=== PATIENT | female | born 1990 | race Caucasian/White ===

== ENCOUNTER 2016-09-29 16:53 | Emergency (ER) | payer OTHER ==
[~2016-09-29 16:53] MED LIST: PREN29TA PO
[2016-09-29 17:35] VITALS: BP 141/80; PULSE 100
[2016-09-29 17:45] VITALS: RESP 20; TEMP 98
[2016-09-29] MEDS ORDERED: RESP: ALBUTEROL 2.5 MG/3 ML NEB (SCH) NEB ONE (18:00)
[2016-09-29] MEDS ORDERED: methylPREDNISolone SOD SUCC 125 MG/2 ML VIAL IV PUSH ONE (18:00)
--- NOTE | 2016-09-29 18:02 | PD ---
HPI Chief Complaint cough Date Seen: Sep 29, 2016 Time Seen: 17:30 Travel History International Travel<30 Days: No Contact w/Intl Traveler<30Days: No Known Affected Area: No History of Present Illness HPI 25yo [id number] at 26w 4days here for cough and wheezing. Has h/o well controlled asthma not presently on inhaler. Has had to be admitted due to respiratory status in the past. Fever x 1 day, seen in urgent care center yesterday and given Z-pack. Flu swab negative yesterday Para: 3 : 6 Last Menstrual Period: Sep 29, 2016 Miscarriage: 1 : 1 History Past Medical History Narrative Medical Asthma Obstetric History Obstetric History x 3 Past Surgical History Narrative Surgical None Family History Family History: Negative Social History Alcohol Use: No Tobacco Use: No Substance Abuse: No Allergies-Medications (Allergen,Severity, Reaction): Coded Allergies: Multivitamins (Verified Allergy, Intermediate, Hives, 09/14/16) Amoxicillin (Verified Allergy, Mild, Hives, 09/14/16) Home Meds Reported Medications Vit-Iron Carbonyl ( Plus Iron 29-1 mg)1 Tab Tab1 Tab PO DAILY #30 TAB Ref 0 07/14/16 Review of Systems General / Constitutional: Fever Eyes: No: Diploplia, Blurred Vision, Visual changes, Pain, Photophobia HENT: Other (Nasal congestion) Cardiovascular: No: Irregular Rhythm, Chest Pain or Discomfort, Palpitations, Tachycardia, Syncope, Varicosities, Edema, Cyanosis Respiratory: Cough, Wheezing Gastrointestinal: No: Nausea, Vomiting, Diarrhea Genitourinary: No: Decreased Urinary Output, Oliguria Musculoskeletal: No: Limited ROM, Weakness, Cramping, Edema, Pain Skin: No Rash, No Itching, No Dryness, No Lumps, No Change in Pigmentation, No Change in Nails, No Alopecia, No Lesions Neurologic: No: Weakness, Dizziness, Syncope, Focal Abnormalities, Coordination Problem, Headache, Slurred Speech, Seizures Physical Exam Narrative GENERAL: Well-nourished, well-developed patient. SKIN: Warm and dry. HEAD: Normocephalic and atraumatic. EYES: No scleral icterus. No injection or drainage. ENT: nasal drainage noted. Mucous membranes pink. Airway patent. NECK: Supple, trachea midline. No JVD. CARDIOVASCULAR: Regular rate and rhythm without murmurs, gallops, or rubs. RESPIRATORY: Good air movement noted, wheezes throughout both lung guerra BREASTS: Bilateral exam showed no masses , no retractions, no nipple discharge. ABDOMEN/GI: Abdomen soft, non-tender, bowel sounds present, no rebound, no guarding Gravid to 27 weeks size Fundal Height: [-] GENITOURINARY: External Genitalia: intact and normal in appearance BUS glands: [-] Cervix: [-] Dilatation: [-] Effacement: [-] Station: [-] Presentation: [-] Membranes: [intact or ruptured] Uterine Contractions: [-] FHT's: Category: [-] 1 Baseline: [-] 140 Reactive: [-] moderate Variability: [-] moderate Decels: [-] absent EXTREMITIES: No cyanosis or edema. BACK: Nontender without obvious deformity. No CVA tenderness. NEUROLOGICAL: Awake and alert. Motor and sensory grossly within normal limits. Five out of 5 muscle strength in all muscle groups. Normal speech. Reexamination at 1920: s/p albuteral nebulizer Wheezes at both bases, much improved air movement, no upper wheezes. O2 sat 99% Data Data Vital Signs Reviewed: Yes Orders Vital Signs (Adult) .ON ADMISSION (09/29/16 17:48) ^ Labor Status (09/29/16 17:48) Complete Blood Count With Diff (09/29/16 17:48) Chest, Pa & Lat (09/29/16 ) Albuterol Neb (Albuterol Neb) (09/29/16 18:00) Methylprednisolone So Succ Inj (Solumedr (09/29/16 18:00) Labs Last Impressions Chest X-Ray 09/29/16 0000 Signed Impressions: Service Date/Time: Thursday, September 29, 2016 18:42 - CONCLUSION: No acute disease. Jeremias Giraldo MD MDM Plan D/C home on Albuterol inhaler, steroid inhaler and continue z-pack Follow up at OB within 1 week Precautions given to return to ED Diagnosis Diagnosis: Primary Impression: Bronchitis Additional Impressions: Asthma exacerbation 27 weeks gestation of Disposition: DISCHARGE HOME Scripts Fluticasone 12 GM Inh (Flovent Hfa 12 GM Inh)220 Mcg/Act Inh2 Puff INH BID #1 INHALER Ref 0 Use daily at the same time. Prov:Jillian Noriega MD 09/29/16 Albuterol 8.5 GM Inh (Proair Hfa 8.5 GM Inh)90 Mcg/Act Aer2 Puff INH Q4-6H PRN ( SHORTNESS OF BREATH) #1 INHALER Ref 0 108 mcg/actuation Prov:Jillian Noriega MD 09/29/16 Jillian Noriega MD Sep 29, 2016 18:02
--- NOTE | 2016-09-29 19:01 | RADRPT ---
EXAM DATE/TIME: 09/29/2016 18:42 [facility] COMPARISON: No previous studies available for comparison. INDICATIONS : Shortness of breath, cough, congestion, fever. MEDICAL HISTORY : None. SURGICAL HISTORY : None. ENCOUNTER: Initial ACUITY: 2 days PAIN SCORE: 2/10 LOCATION: chest midline FINDINGS: PA and lateral views of the chest demonstrate the lungs to be symmetrically aerated without evidence of mass, infiltrate or effusion. The cardiomediastinal contours are unremarkable. Osseous structure s are intact. CONCLUSION: No acute disease. Jeremias Giraldo MD on September 29, 2016 at 18:59 Board Certified Radiologist. This report was verified electronically.
[2016-09-29] MEDS ORDERED: FLUTI220I INH (19:23)
[2016-09-29] MEDS ORDERED: ALBUAER3 INH (19:23)
[2016-10-12] MEDS ORDERED: PREN29TA PO (08:59)
[2017-02-08] MEDS ORDERED: BUSP5TAB PO (13:08)
[2017-02-08] MEDS ORDERED: LEVO13.5 I-UTERINE (13:37)
== END 2016-09-29 20:02 | disposition home or self-care (01) ==
LOC: HOBED 16:53
DX: O99.512 Diseases of the respiratory system complicating pregnancy, second trimester (principal); J45.901 Unspecified asthma with (acute) exacerbation; Z3A.27 27 weeks gestation of pregnancy
CPT/HCPCS: 36415; 71020; 94664; 96374; 99284; J2930; J7613

== ENCOUNTER 2016-12-26 11:08 | Emergency (ER) | payer OTHER ==
[~2016-12-26] VITALS: Ht 162.6 cm; Wt 80.0 kg
[~2016-12-26 11:08] MED LIST changes: +ALBUAER3 INH; +FLUTI220I INH
[2016-12-26 11:10] VITALS: BP 122/79; PULSE 67; RESP 15; TEMP 97.8; O2SAT 99
--- NOTE | 2016-12-26 11:24 | PD ---
HPI Chief Complaint: Cold / Flu Symptoms Time Seen by Provider: 11:22 Travel History International Travel<30 days: No Contact w/Intl Traveler<30days: No Traveled to known affect area: No History of Present Illness HPI 26-year-old female 39 weeks gestation presents to the emergency department for evaluation of nasal congestion, headache and cold symptoms for 3 days. States that initially she had a sore throat and a mild cough. States that now she has nasal congestion and headache. Denies any fever, chills, nausea, vomiting, chest pain, shortness of breath, abdominal pain, vaginal bleeding. States she has been taking Tylenol and ibuprofen with some relief of symptoms. Denies any recent travel or sick contacts. States that the baby has been moving normally. No other complaints. PFSH Past Medical History Asthma: Yes Diminished Hearing: No Thyroid Disease: Yes (hyper ) ?: LMP: 03/26/2016 : 7 Para: 3 Miscarriage: 1 : 2 Ovarian Cysts: Yes Social History Alcohol Use: No Tobacco Use: No Substance Use: No Allergies-Medications (Allergen,Severity, Reaction): Coded Allergies: Multivitamins (Verified Allergy, Intermediate, Hives, 12/26/16) Amoxicillin (Verified Allergy, Mild, Hives, 12/26/16) Reported Meds & Prescriptions Reported Meds & Active Scripts Active Flonase Nasal [place] (Fluticasone Nasal [place]) 50 Mcg/Act [place] 50 Mcg EACH NARE BID Flovent Hfa 12 GM Inh (Fluticasone Propionate) 220 Mcg/Act Inh 2 Puff INH BID Use daily at the same time. Proair Hfa 8.5 GM Inh (Albuterol Sulfate) 90 Mcg/Act Aer 2 Puff INH Q4-6H PRN 108 mcg/actuation Review of Systems Except as stated in HPI: all other systems reviewed are Neg Physical Exam Narrative GENERAL: Well-nourished and well-developed pleasant female patient in no acute distress who is nontoxic appearing. SKIN: Warm and dry. HEAD: Normocephalic and atraumatic. No bony point tenderness or crepitus noted throughout the sinuses. EYES: No injection, drainage, or hyphema noted. PERRLA. EOMI. ENT: Erythematous nasal mucosa bilaterally. No nasal drainage noted. Oropharynx is clear and the TMs are normal with good landmarks. NECK: Supple and the trachea is midline. No lymphadenopathy is noted throughout the cervical chains. CARDIOVASCULAR: Regular rate and rhythm. RESPIRATORY: Breath sounds are equal bilaterally with no accessory muscle use, wheezing, rhonchi, or crackles. NEUROLOGICAL: Awake, alert, and oriented. Normal speech and gait. Cranial nerves are grossly intact. Data Data Last Documented VS Vital Signs Date Time Temp Pulse Resp B/P Pulse Ox O2 Delivery O2 Flow Rate FiO2 12/26/16 11:23 Room Air 12/26/16 11:10 97.8 67 15 122/79 99 MDM Medical Decision Making Medical Screen Exam Complete: Yes Emergency Medical Condition: Yes Differential Diagnosis URI versus rhinitis versus sinusitis Narrative Course 26-year-old female 39 weeks presents to the emergency department for evaluation of cold symptoms for 3 days. Patient is afebrile, vital signs are stable. Physical examination is essentially unremarkable with the exception of erythematous nasal mucosa. Patient is advised to continue taking Tylenol and Benadryl as directed on the box for symptoms and she'll be prescribed Flonase as well. Advised to follow-up with her [employer] as needed. Instructed to return to the ED for any worsening of symptoms. Patient verbalizes understanding and agreement with treatment plan. Diagnosis Primary Impression: Upper respiratory infection Qualified Code: J06.9 - Viral upper respiratory tract infection Additional Impression: 39 weeks gestation of Patient Instructions: General Instructions, Upper Respiratory Infection (ED) Additional Instructions: Rest. Continue Benadryl and Tylenol as directed on the box. Use Flonase as prescribed. Follow-up with your OBGYN. Return to the ED for any acute worsening of symptoms. Med/Other Pt SpecificInfo: Prescription(s) given Scripts Fluticasone Nasal [place] (Flonase Nasal [place])50 Mcg/Act Spray50 Mcg EACH NARE BID #1 BOTTLE Ref 0 Prov:Kimmie Santillan MD 12/26/16 Disposition: 01 DISCHARGE HOME Condition: Stable Carisa Laboy Dec 26, 2016 11:24
[2016-12-26] MEDS ORDERED: FLUT1SPR5 EACH NARE (11:25)
[2017-02-08] MEDS ORDERED: BUSP5TAB PO (13:08)
[2017-02-08] MEDS ORDERED: LEVO13.5 I-UTERINE (13:37)
== END 2016-12-26 11:46 | disposition home or self-care (01) ==
LOC: NEPD 11:08
DX: O99.513 Diseases of the respiratory system complicating pregnancy, third trimester (principal); J06.9 Acute upper respiratory infection, unspecified; Z3A.39 39 weeks gestation of pregnancy
CPT/HCPCS: 99283

== ENCOUNTER 2016-12-28 10:30 | Emergency (ER) | payer OTHER ==
[~2016-12-28 10:30] MED LIST changes: +FLUT1SPR5 EACH NARE; -PREN29TA PO
--- NOTE | 2016-12-28 11:15 | PD ---
HPI Chief Complaint possible ROM Date Seen: December 28, 2016 (Best Pate MD R2) Travel History International Travel<30 Days: No Contact w/Intl Traveler<30Days: No (Best Pate MD R2) History of Present Illness HPI Ms. Ruiz is a 26 yo at 39 3/7 weeks (JESSIKA 01/01/2017) patient of [facility] who presents with concern for possible ROM. Ms. Ruiz states that she began feeling as if her membranes were ruptured last Wednesday (12/23)/ following getting her "membranes stripped" at [facility] appointment last Wednesday. Patient states that since that time, she had clear fluid discharge which she stated was different than urine. Patient states that she is repeatedly noticed this, and that is increased in quantity and occasionally "gushing." Due to concern for rupture membranes, patient went to [facility] and checked for possible ROM; Amnisure reportedly negative. Since that evaluation, patient remains convinced that her membranes ruptured. Patient states that she also began noting seen a pink clearish discharge to fluid today. Patient states that she was advised by [facility] to seek repeat evaluation at OB ED for possible ROM. Patient reports normal movement. No vaginal bleeding. Patient denies contractions. No headache, visual changes, shortness of breath, chest pain, nausea, dysuria, or leg swelling. Urinary frequency present, but normal for patient during . Patient reports benign history. Patient states she is GBS negative. Patient denies ultrasound abnormalities. : 7 (Best Pate MD R2) History Past Medical History Medical History: Denies Significant Hx (Best Pate MD R2) Obstetric History Obstetric History 3 full-term vaginal deliveries 7, 3, and 2 years ago 1 spontaneous 2 induced abortions (Best Pate MD R2) Past Surgical History Surgical History: No Previous Surgery (Best Pate MD R2) Family History Narrative Family History Grandmotherdiabetes (Best Pate MD R2) Social History Alcohol Use: No Tobacco Use: No Substance Abuse: No (Best Pate MD R2) Allergies-Medications (Allergen,Severity, Reaction): Coded Allergies: Multivitamins (Verified Allergy, Intermediate, Hives, 12/26/16) Amoxicillin (Verified Allergy, Mild, Hives, 12/26/16) Home Meds Active Scripts Fluticasone Nasal [place] (Flonase Nasal [place])50 Mcg/Act Spray50 Mcg EACH NARE BID #1 BOTTLE Ref 0 Prov:Kimmie Santillan MD 12/26/16 Fluticasone 12 GM Inh (Flovent Hfa 12 GM Inh)220 Mcg/Act Inh2 Puff INH BID #1 INHALER Ref 0 Use daily at the same time. Prov:Jillian Noriega MD 09/29/16 Albuterol 8.5 GM Inh (Proair Hfa 8.5 GM Inh)90 Mcg/Act Aer2 Puff INH Q4-6H PRN ( SHORTNESS OF BREATH) #1 INHALER Ref 0 108 mcg/actuation Prov:Jillian Noriega MD 09/29/16 Discontinued Scripts Vit-Iron Carbonyl ( Plus Iron 29-1 mg)1 Tab Tab1 Tab PO DAILY #30 TAB Ref 11 Prov:Candace Harkins 10/12/16 Review of Systems General / Constitutional: No: Fever, Chills HENT: No: Headaches Cardiovascular: No: Chest Pain or Discomfort Respiratory: No: Short of Breath Gastrointestinal: No: Nausea Genitourinary: No: Dysuria (Best Pate MD R2) Physical Exam BP 1:15/60 70 HR 79 RR 18 T 98 Narrative GENERAL: Well-nourished, well-developed patient. SKIN: Warm and dry. HEAD: Normocephalic and atraumatic. EYES: No scleral icterus. No injection or drainage. ENT: No nasal drainage noted. Mucous membranes pink. Airway patent. CARDIOVASCULAR: Regular rate and rhythm without murmurs RESPIRATORY: CTAB, normal rate EXTREMITIES: No cyanosis or edema. NEUROLOGICAL: Awake and alert. Motor and sensory function grossly within normal limits. ABDOMEN/GI: Abdomen soft, non-tender, bowel sounds present, no rebound, no guarding Gravid GENITOURINARY: Per nursing staff External Genitalia: intact and normal in appearance Cervix: Dilatation: 3 Effacement: 30% Station: -2 Presentation: V Membranes: Intact (Amnisure negative) Uterine Contractions: Irritability FHT's: Category: 1 Baseline: 130 Reactive: Y Variability: Mod Decels: None (Best Pate MD R2) Data Data Vital Signs Reviewed: Yes (Best Pate MD R2) MDM Medical Record Reviewed: Yes Narrative Course / MDM 26 yo at 39 3/7 weeks (JESSIKA 01/01/2017) patient of [facility] who presents with concern for possible ROM -Cat 1 rhythm -No contractions on CTG -Cervix 3/70%/-2 Plan: -Check Amnisure -Monitor EFM Interval: Amnisure negative Urinalysis sent; however, low suspicion for UTI based on patient symptoms -Not suggestive of UTI Bedside ultrasound performed by Dr. Romo; normal amniotic fluid index Updated Plan: Patient reassured that bedside ultrasound findings along with Amnisure negative results are highly reassuring of lack of ruptured membranes, and that heart monitoring was reassuring. Patient deemed stable for discharge home and follow-up with [facility] tomorrow as previously scheduled by patient. Labor precautions and reasons to return to the ED given to patient. (Best Pate MD R2) Medical Record Reviewed: Yes Attending Attestation The exam, history, and the medical decision-making described in the above note were completed with the assistance of the resident provider. I reviewed and agree with the findings presented. I attest that I had a [id number] encounter with the patient on the same day, and personally performed and documented my assessment and findings in the medical record. Amnisure test negative. Bedside ultrasound with KVNG of 10.96, DVP of 6 cm. ( Rodrick Romo MD) Diagnosis Diagnosis: Primary Impression: Vaginal discharge during Additional Impression: 39 weeks gestation of Disposition: DISCHARGE HOME Condition: Stable Patient Instructions: General Instructions, Early Labor Signs (ED) Best Pate MD R2 December 28, 2016 11:15 Rodrick Romo MD December 28, 2016 12:09
[2016-12-28 11:37] LABS: BLOOD, URINE NEG (NEG); COMMENT (UR) CULT NOT INDICATED; CULTURE IF INDICATED CULT NOT INDICATED; GLUCOSE,URINE NEG (NEG); KETONE, URINE NEG (NEG); MUCUS URINE FEW /lpf (OCC); NITRITE,URINE NEG (NEG); PH, URINE 6.5 (5.0-8.5); SQUAMOUS EPITHELIAL CELL URINE <1 /hpf (0-5); URINE COLOR YELLOW (YELLW/STRAW)
[2017-02-08] MEDS ORDERED: BUSP5TAB PO (13:08)
[2017-02-08] MEDS ORDERED: LEVO13.5 I-UTERINE (13:37)
== END 2016-12-28 12:11 | disposition home or self-care (01) ==
LOC: HOBED 10:30
DX: O26.893 Other specified pregnancy related conditions, third trimester (principal); N89.8 Other specified noninflammatory disorders of vagina; Z3A.39 39 weeks gestation of pregnancy
CPT/HCPCS: 59025; 76815; 81001; 84112

== ENCOUNTER 2016-12-31 18:33 | Emergency (ER) | payer OTHER ==
--- NOTE | 2016-12-31 19:44 | PD ---
HPI Chief Complaint Leaking fluid vaginally with a large gush at home after going to the bathroom Date Seen: December 31, 2016 Travel History International Travel<30 Days: No Contact w/Intl Traveler<30Days: No Known Affected Area: No History of Present Illness HPI Patient is 26-year-old white female at 39 weeks who presents with a large gush of fluid at home per vagina. She was going to the bathroom she urinated she feels felt she emptied her bladder and then she was pulling up her pants are she had large gush of fluid a couple water and then it did again she put a pad on it at [place] with so she came in sure her water was broken, however here amnio sure is negative twice heart rate tracing is reactive is reactive and nice decelerations are is only a few irregular contractions are small, no bleeding, [facility] Para: 3 : 7 History Obstetric History Obstetric History 3 vaginal deliveries 3 losses early Social History Alcohol Use: No Tobacco Use: No Substance Abuse: No Allergies-Medications (Allergen,Severity, Reaction): Coded Allergies: Multivitamins (Verified Allergy, Intermediate, Hives, 12/29/16) Amoxicillin (Verified Allergy, Mild, Hives, 12/29/16) Home Meds Active Scripts Fluticasone Nasal [place] (Flonase Nasal [place])50 Mcg/Act Spray50 Mcg EACH NARE BID #1 BOTTLE Ref 0 Prov:Kimmie Santillan MD 12/26/16 Fluticasone 12 GM Inh (Flovent Hfa 12 GM Inh)220 Mcg/Act Inh2 Puff INH BID #1 INHALER Ref 0 Use daily at the same time. Prov:Jillian Noriega MD 09/29/16 Albuterol 8.5 GM Inh (Proair Hfa 8.5 GM Inh)90 Mcg/Act Aer2 Puff INH Q4-6H PRN ( SHORTNESS OF BREATH) #1 INHALER Ref 0 108 mcg/actuation Prov:Jillian Noriega MD 09/29/16 Discontinued Scripts Vit-Iron Carbonyl ( Plus Iron 29-1 mg)1 Tab Tab1 Tab PO DAILY #30 TAB Ref 11 Prov:Candace Harkins 10/12/16 Review of Systems General / Constitutional: No: Fever, Weight Gain, Chills, Other Eyes: No: Diploplia, Blurred Vision, Visual changes, Pain, Photophobia HENT: No: Headaches, Vertigo, Lightheadedness Cardiovascular: No: Irregular Rhythm, Chest Pain or Discomfort, Palpitations, Tachycardia, Syncope, Varicosities, Edema, Cyanosis Respiratory: No: Cough, Short of Breath, Other Gastrointestinal: No: Nausea, Vomiting, Diarrhea Genitourinary: No: Decreased Urinary Output, Oliguria Musculoskeletal: No: Limited ROM, Weakness, Cramping, Edema, Pain Skin: No Rash, No Itching, No Dryness, No Lumps, No Change in Pigmentation, No Change in Nails, No Alopecia, No Lesions Neurologic: No: Weakness, Dizziness, Syncope, Focal Abnormalities, Coordination Problem, Headache, Slurred Speech, Seizures Psychiatric: No: Depression, Suicidal Ideations, Homicidal Ideation Endocrine: No: Heat Intolerance, Cold Intolerance, Polydipsia, Polyuria, Other Physical Exam Narrative GENERAL: Well-nourished, well-developed patient. SKIN: Warm and dry. HEAD: Normocephalic and atraumatic. EYES: No scleral icterus. No injection or drainage. ENT: No nasal drainage noted. Mucous membranes pink. Airway patent. NECK: Supple, trachea midline. No JVD. CARDIOVASCULAR: Regular rate and rhythm without murmurs, gallops, or rubs. RESPIRATORY: Breath sounds equal bilaterally. No accessory muscle use. BREASTS: Bilateral exam showed no masses , no retractions, no nipple discharge. ABDOMEN/GI: Abdomen soft, non-tender, bowel sounds present, no rebound, no guarding Gravid to [39-] weeks size Fundal Height: [39-] GENITOURINARY: External Genitalia: intact and normal in appearance BUS glands: [-] Cervix: [-] Dilatation: [-2 cm and thick with a palpable intact amniotic sac at the baby' s head] Effacement: [-] Thick Station: [-3] Presentation: [-] vtx Membranes: [intact ] Uterine Contractions: [-irreg] FHT's: Category: [1-] Baseline: [-133] Reactive: [-yes] Variability: [mod-] Decels: [-0] EXTREMITIES: No cyanosis or edema. BACK: Nontender without obvious deformity. No CVA tenderness. NEUROLOGICAL: Awake and alert. Motor and sensory grossly within normal limits. Five out of 5 muscle strength in all muscle groups. Normal speech. Data Data Labs Amnio sure negative 2 Bedside ultrasound was done by myself which showed adequate amniotic fluid, active baby in a cephalic presentation with normal anatomy screen, size equal dates, anterior placenta MDM Interpretation(s) Is a 26-year-old white female at 39 weeks goes to the [facility] who presents with a large gush of fluid per vagina at home. Here on OB ED she's had 2 amnio sure is negative, speculum exam done showed no fluid pooling and some yellow discharge noted from the cervical os and the posterior fornix no" washout effect". We do an ultrasound at bedside which shows adequate amniotic fluid no oligohydramnios Plan Plan to discharge the patient home to observation she'll keep an eye on once going on and if she has a large leak of fluid again and she'll return will reevaluate Diagnosis Diagnosis: Primary Impression: No leakage of amniotic fluid into vagina Disposition: 01 DISCHARGE HOME Condition: Stable Saqib Byrne II, MD December 31, 2016 19:44
[2017-02-08] MEDS ORDERED: BUSP5TAB PO (13:08)
[2017-02-08] MEDS ORDERED: LEVO13.5 I-UTERINE (13:37)
== END 2016-12-31 22:22 | disposition home or self-care (01) ==
LOC: HOBED 18:33
DX: O26.893 Other specified pregnancy related conditions, third trimester (principal); Z3A.39 39 weeks gestation of pregnancy
CPT/HCPCS: 59025; 76815; 84112

== ENCOUNTER 2017-01-02 00:40 | Inpatient (IN) | payer OTHER ==
[~2017-01-02] VITALS: Ht 162.6 cm; Wt 81.2 kg
[2017-01-02] VITALS (28 sets, daily range): BP systolic 88–123; BP diastolic 45–90; PULSE 64–174; RESP 18; TEMP 97.3–98.6; O2SAT 100
[2017-01-02] MEDS ORDERED: PREN1TAB63 (01:08)
[2017-01-02] MEDS ORDERED: LACTATED RINGER'S 1000 ML INJ 1,000 ML IV PRN (01:15)
[2017-01-02] MEDS ORDERED: OXYTOCIN 30 UNITS-500ML PREMIX 500 ML IV ONE (01:15)
[2017-01-02] MEDS ORDERED: MINERAL OIL 10 ML VIAL TOPICAL PRN (01:15)
[2017-01-02] MEDS ORDERED: CITRIC ACID-SODIUM CITRATE LIQ 30 ML UDC PO SCH (01:15)
[2017-01-02] MEDS ORDERED: LIDOCAINE HCL 1% 50 ML VIAL INFIL PRN (01:15)
[2017-01-02] MEDS ORDERED: LIDOCAINE HCL 1% 50 ML VIAL I-DERMAL PRN (01:15)
[2017-01-02] MEDS ORDERED: SODIUM CHLORID 0.9% 500 ML INJ 500 ML IV PRN (01:15)
[2017-01-02] MEDS ORDERED: LACTATED RINGER'S 1000 ML INJ 1,000 ML IV SCH (01:15)
--- NOTE | 2017-01-02 01:15 | PD ---
HPI Chief Complaint contractions Date Seen: January 02, 2017 (Best Pate MD R2) Travel History International Travel<30 Days: No Contact w/Intl Traveler<30Days: No Known Affected Area: No (Best Pate MD R2) History of Present Illness HPI Ms. Ruiz is a 26 yo at 40 1/7 weeks (JESSIKA 01/01/2017) patient of [facility] who presents with contractions. Ms. Ruiz reports the contractions started at approximately 2130 and were 810 minutes apart; since that time they gradually increased in frequency and are now 46 minutes apart. Patient reports pink fluid/mucus when using bathroom and loss of mucous plug but denies rupture of membranes. Eyes overt vaginal bleeding. Patient reports normal movement. No headache, visual changes, shortness of breath, chest pain, nausea, dysuria, or leg swelling. Patient reports benign history. Patient states she is GBS negative. Patient denies ultrasound abnormalities; but said ultrasound 12/28 reassuring. Para: 3 : 7 Miscarriage: 1 : 2 (Best Pate MD R2) History Past Medical History Medical History: Denies Significant Hx (Best Pate MD R2) Obstetric History Obstetric History 3 full-term vaginal deliveries 7, 3, and 2 years ago 1 spontaneous 2 induced abortions (Best Pate MD R2) Past Surgical History Surgical History: No Previous Surgery (Best Pate MD R2) Family History Narrative Family History Grandmotherdiabetes (Best Pate MD R2) Social History Alcohol Use: No Tobacco Use: No Substance Abuse: No (Best Pate MD R2) Allergies-Medications (Allergen,Severity, Reaction): Coded Allergies: Multivitamins (Verified Allergy, Intermediate, Hives, 01/02/17) Amoxicillin (Verified Allergy, Mild, Hives, 01/02/17) Home Meds Reported Medications Multivit-Min W/Fe-FA ( Vitamins 0.8 mg)1 Tab Tab 01/02/17 Discontinued Scripts Fluticasone Nasal [place] (Flonase Nasal [place])50 Mcg/Act Spray50 Mcg EACH NARE BID #1 BOTTLE Ref 0 Prov:Kimmie Santillan MD 12/26/16 Fluticasone 12 GM Inh (Flovent Hfa 12 GM Inh)220 Mcg/Act Inh2 Puff INH BID #1 INHALER Ref 0 Use daily at the same time. Prov:Jillian Noriega MD 09/29/16 Albuterol 8.5 GM Inh (Proair Hfa 8.5 GM Inh)90 Mcg/Act Aer2 Puff INH Q4-6H PRN ( SHORTNESS OF BREATH) #1 INHALER Ref 0 108 mcg/actuation Prov:Jillian Noriega MD 09/29/16 Vit-Iron Carbonyl ( Plus Iron 29-1 mg)1 Tab Tab1 Tab PO DAILY #30 TAB Ref 11 Prov:Candace Harkins 10/12/16 Review of Systems General / Constitutional: No: Fever, Chills Eyes: No: Blurred Vision HENT: No: Headaches Cardiovascular: No: Chest Pain or Discomfort Respiratory: No: Short of Breath Gastrointestinal: No: Nausea, Vomiting Genitourinary: No: Urgency, Dysuria (Best Pate MD R2) Physical Exam T 98.9 HR 76 BP 112/67 RR 18 Narrative GENERAL: Well-nourished, well-developed patient. SKIN: Warm and dry. HEAD: Normocephalic and atraumatic. EYES: No scleral icterus. No injection or drainage. ENT: No nasal drainage noted. Mucous membranes pink. Airway patent. CARDIOVASCULAR: Regular rate and rhythm without murmurs RESPIRATORY: CTAB, normal rate EXTREMITIES: No cyanosis or edema. NEUROLOGICAL: Awake and alert. Motor and sensory function grossly within normal limits. ABDOMEN/GI: Abdomen soft, non-tender, bowel sounds present, no rebound, no guarding Gravid GENITOURINARY: Per nursing staff External Genitalia: intact and normal in appearance Cervix: Soft Dilatation: 3 Effacement: 70% Station: -2 Presentation: V Membranes: Intact Uterine Contractions: q2 min FHT's: Category: 1 Baseline: 140 Reactive: Y Variability: Mod Decels: None (Best Pate MD R2) Data Data Vital Signs Reviewed: Yes (Best Pate MD R2) MDM Medical Record Reviewed: Yes Narrative Course / MDM 26 yo at 40 1/7 weeks (JESSIKA 01/01/2017) patient of [facility] who presents with contractions -Cat 1 rhythm -Contractions every 23 minutes -Cervix 3/70%/-2 -GBS negative -No known complications Plan: -We'll plan to admit for labor -Monitor EFM -Start IVF -Obtain CBC, UA, hold clot (Best Pate MD R2) Collaborating MD Comments Agree with admission and management plan (Jillian Noriega MD) Best Pate MD R2 January 02, 2017 01:15 Jillian Noriega MD January 02, 2017 01:28
[2017-01-02] MEDS ORDERED: SODIUM CHLOR 0.9% 1000 ML INJ 1,000 ML IV PRN (01:35)
[2017-01-02] MEDS ORDERED: fentaNYL 2MCG-BUPIV 0.125% INJ 100 ML ONE (02:02)
[2017-01-02] MEDS ORDERED: ePHEDrine/NS 25 MG/5 ML SYR ONE (02:02)
[2017-01-02 02:03] LABS: AUTOMATED NEUTROPHIL # 10.3 TH/MM3 (1.8-7.7); BASOPHIL % 0.3 % (0.0-2.0); EOSINOPHIL # 0.1 TH/MM3 (0-0.4); EOSINOPHIL % 0.8 % (0.0-4.0); HEMATOCRIT 36.3 % (35.0-46.0); HEMO FLAGS DIFF FINAL; LYMPH % 12.7 % (9.0-44.0); LYMPHOCYTE # 1.6 TH/MM3 (1.0-4.8); MEAN CELL VOLUME 88.4 FL (80.0-100.0); MEAN CORPUSCULAR HEMOGLOBIN 30.6 PG (27.0-34.0); MEAN CORPUSCULAR HGB CONC 34.6 % (32.0-36.0); MONO % 5.4 % (0.0-8.0); NEUT % 80.8 % (16.0-70.0); PLATELET COUNT 126 TH/MM3 (150-450); RED BLOOD COUNT 4.11 MIL/MM3 (4.00-5.30); RED CELL DISTRIBUTION WIDTH 12.8 % (11.6-17.2); WHITE BLOOD COUNT 12.8 TH/MM3 (4.0-11.0)
[2017-01-02] MEDS ORDERED: BUPIVACAINE HCL PF 0.25% 10 ML VIAL ONE (02:18)
--- NOTE | 2017-01-02 03:12 | PD.OB.DELI ---
Delivery Date: January 02, 2017 Anesthesia: Epidural Episiotomy: None Vaginal Delivery: Spontaneous Presentation: Occiput anterior Nuchal Cord: x1 (Reduced) Delayed cord clamping (45 sec): Yes : Female One Minute : 8 Five Minute : 9 Weight: 3175g Placenta: Spontaneous delivery Laceration: No lacerations Additional Information Ms. Ruiz is a G7 now P4 who delivered via uncomplicated at 40/1. Patient had epidural anesthesia placed prior to delivery without complications. went without complications as well. There was one loose nuchal cord that was manually reduced. born with APGARs of 8/9 at with spontaneous crying and response to stimulation. Placenta was delivered shortly after spontaneously. There were no vaginal lacerations. Baby and mother comfortably resting in room without complaints. SDW: Dr. Noriega and Dr. Pate. (Otilio García MD R1) Collaborating MD Comments performed under direct supervision without complications (Jillian Noriega MD) Otilio García MD R1 January 02, 2017 03:12 Jillian Noriega MD January 02, 2017 09:15
[2017-01-02] MEDS ORDERED: ACETAMINOPHEN 325 MG TAB PO PRN (03:15)
[2017-01-02] MEDS ORDERED: ZOLPIDEM TARTRATE 5 MG TAB PO PRN (03:15)
[2017-01-02] MEDS ORDERED: SODIUM CHLORIDE 0.9% FLUSH 10 ML FLUSH IV FLUSH PRN (03:15)
[2017-01-02] MEDS ORDERED: BENZOCAINE 20% TOPICAL SPRAY 60 ML CAN TOPICAL PRN (03:15)
[2017-01-02] MEDS ORDERED: ONDANSETRON ODT 4 MG TAB PO PRN (03:15)
[2017-01-02] MEDS ORDERED: WITCH HAZEL 50%/GLYCERIN 12.5% 40 PAD JAR TOPICAL PRN (03:15)
[2017-01-02] MEDS ORDERED: ALUMINUM/MAGNESIUM/SIMETH 30 ML CUP PO PRN (03:15)
[2017-01-02] MEDS ORDERED: fentaNYL 2MCG-BUPIV 0.125% 100 ML EPIDURAL SCH (03:30)
[2017-01-02] MEDS ORDERED: ePHEDrine/NS 25 MG/5 ML SYR IV PRN (03:30)
[2017-01-02] MEDS ORDERED: NO SYSTEM NARCOTICS PRN (03:30)
[2017-01-02] MEDS ORDERED: DO NOT ADMINISTER ANTICOAGULANTS PRN (03:30)
[2017-01-02] MEDS ORDERED: SODIUM CHLORIDE 0.9% FLUSH 10 ML FLUSH IV FLUSH SCH (09:00)
[2017-01-02] MEDS: DOCUSATE SODIUM 50 MG/SENNA 8.6 MG TAB PO PRN (11:19)
[2017-01-02] MEDS: IBUPROFEN 600 MG TAB PO PRN ×3 (11:19→23:51)
[2017-01-02] MEDS: oxyCODONE/ACETAMINOPHEN 5 MG/325 MG TAB PO PRN ×3 (11:20→23:52)
[2017-01-02] MEDS ORDERED: MEASLES, MUMPS, RUBELLA VACCINE 0.5 ML VIAL SQ ONE (16:00)
[2017-01-02] MEDS ORDERED: DIPHTH/TETANUS/ACEL PERTUSSIS (BOOSTER) 0.5 ML VIAL/PFS IM ONE (16:00)
[2017-01-03 08:00] VITALS: BP 106/78; PULSE 70; RESP 16; TEMP 98.5
[2017-01-03] MEDS: DOCUSATE SODIUM 50 MG/SENNA 8.6 MG TAB PO PRN (08:28)
[2017-01-03] MEDS: oxyCODONE/ACETAMINOPHEN 5 MG/325 MG TAB PO PRN (08:28)
[2017-01-03] MEDS: IBUPROFEN 600 MG TAB PO PRN (08:28)
--- NOTE | 2017-01-03 08:30 | HHI.OB ---
Subjective Post Day: 1 Remarks Ms. Ruiz is a 26 yo who is PPD 1 from (01/02 at 0250). Ms. Ruiz was afebrile with stable vital signs overnight. Patient reports abdominal cramping relieved with pain medication. Patient relating well. No shortness of breath, leg swelling, dysuria, or other symptoms reported. Patient passing gas normally. Patient states breast-feeding is going well. Objective Vitals/I&O Vital Signs Date Time Temp Pulse Resp B/P Pulse Ox O2 Delivery O2 Flow Rate FiO2 01/02/17 21:00 97.3 67 18 93/57 Objective Remarks GENERAL: Well-nourished, well-developed patient. CARDIOVASCULAR: Regular rate and rhythm without murmurs, gallops, or rubs. RESPIRATORY: CTA B, normal rate ABDOMEN/GI: Abdomen soft, non-tender. Fundus: Firm, non-tender at umbilicus. GENITOURINARY: Light to moderate bleeding. EXTREMITIES: No cyanosis or edema, non-tender, without signs of DVT. Medications and IVs Current Medications Medications (Trade) Dose Ordered Sig/Letha Route Start Time Stop Time Status Last Admin (NS Flush) 2 ml BID IV FLUSH 01/02/17 09:00 (NS Flush) 2 ml UNSCH PRN IV FLUSH 01/02/17 03:15 (Tylenol) 650 mg Q4H PRN PO 01/02/17 03:15 (Motrin) 600 mg Q6H PRN PO 01/02/17 03:15 01/02/17 23:51 (Percocet 5-325 Mg) 1 tab Q4H PRN PO 01/02/17 03:15 01/02/17 23:52 (Percocet 5-325 Mg) 2 tab Q4H PRN PO 01/02/17 03:15 01/02/17 11:20 (Americaine 20% Top Spr) 1 spray Q4H PRN TOPICAL 01/02/17 03:15 (Tucks Pads) 1 applic QID PRN TOPICAL 01/02/17 03:15 (Damaris-Colace) 2 tab Q12H PRN PO 01/02/17 03:15 01/02/17 11:19 (Ambien) 5 mg HS PRN PO 01/02/17 03:15 (Mag-Al Plus Susp Liq) 15 ml Q8H PRN PO 01/02/17 03:15 Ondansetron HCl 4 mg 4 mg Q6H PRN PO 01/02/17 03:15 (fentaNYL 2MCG-BUPIV 0.125% INJ) 100 ml @ 0 mls/hr TITRATE EPIDURAL 01/02/17 03:30 Assessment/Plan Problem List: (1) care and examination Assessment and Plan 26 yo who is PPD 1 from (01/02 at 0250). Routine care Motrin/Percocet for pain Continue stool softener Continue to monitor vital signs/vaginal bleeding Encourage ambulation Encourage breast feeding Best Pate MD R2 January 03, 2017 08:30
[2017-01-03] MEDS ORDERED: SENN1TAB PO (08:31)
[2017-01-03] MEDS ORDERED: IBUP-232 PO (08:31)
--- NOTE | 2017-01-03 08:35 | HHI.DCPOC ---
Discharge Care Plan Diagnosis: (1) care and examination Report Symptoms to Your Doctor -Temperate above 100.5 degrees -Redness, of incision or excessive or foul smelling drainage -Unusual pain or calf pain -Increased vaginal bleeding -Painful or difficulty urinating -Feelings of extreme sadness or anxiety after 2 weeks Goals to Promote Your Health * To prevent worsening of your condition and complications * To maintain your health at the optimal level Directions to Meet Your Goals Take your medications as prescribed Follow your dietary instruction Follow activity as directed Ensure plenty of rest for recovery Drink fluids for hydration Keep your appointments as scheduled Take your immunizations and boosters as scheduled If your symptoms worsen call your PCP, if no PCP go to Urgent Care Center or Emergency Room Smoking is Dangerous to Your Health. Avoid second hand smoke Call the 24-hour crisis hotline for domestic abuse at Best Pate MD R2 January 03, 2017 08:35
[2017-02-08] MEDS ORDERED: BUSP5TAB PO (13:08)
[2017-02-08] MEDS ORDERED: LEVO13.5 I-UTERINE (13:37)
== END 2017-01-03 10:35 | disposition home or self-care (01) | DRG 775 ==
LOC: HOBED 00:40 → H2EB 01:09 → H1EA 05:31
PROVIDERS: ADMIT Obstetrics & Gynecology Obstetrics; ATTEND Obstetrics & Gynecology Obstetrics
PROC: 10E0XZZ Delivery of Products of Conception, External Approach (ICD-10-PCS; principal; 2017-01-02)
DX: O69.81X0 Labor and delivery complicated by cord around neck, without compression, not applicable or unspecified (principal); Z37.0 Single live birth; Z3A.40 40 weeks gestation of pregnancy; Z88.1 Allergy status to other antibiotic agents
CPT/HCPCS: 59025; 76815; 84112; 85025; 86900; 86901; 90715; 99285; J7120

== ENCOUNTER 2017-05-08 23:40 | Emergency (ER) | payer OTHER ==
[~2017-05-08] VITALS: Ht 160 cm; Wt 55.0 kg
[~2017-05-08 23:40] MED LIST changes: -ALBUAER3 INH; +BUSP5TAB PO; -FLUT1SPR5 EACH NARE; -FLUTI220I INH; +LEVO13.5 I-UTERINE
[2017-05-08 23:43] VITALS: BP 114/57; PULSE 83; RESP 16; TEMP 98.8; O2SAT 98
[2017-05-08] MEDS ORDERED: METOCLOPRAMIDE HCL 10 MG/2 ML VIAL IV PUSH ONE (23:45)
[2017-05-08] MEDS ORDERED: diphenhydrAMINE HCL 50 MG/ML VIAL IV PUSH ONE (23:45)
--- NOTE | 2017-05-08 23:53 | PD ---
HPI Chief Complaint: Complaint Time Seen by Provider: 23:41 Travel History International Travel<30 days: No Contact w/Intl Traveler<30days: No Traveled to known affect area: No History of Present Illness HPI 26-year-old white female presents to emergency department by EMS for evaluation of right lower abdominal pain and feeling bloated. She states that she has been having intermittent abdominal pain now for the last several days. She was seen at [facility] 2 days ago and had laboratory testing including a CT scan. She states that she was diagnosed with a UTI and was given a prescription for antibiotics which she has not filled yet. She states that he has not had any urinary symptoms and does not believe that she has a UTI. She feels there is something else going on. She states that the pain in her right lower quadrant has intensified. She has had subjective intermittent fevers. She's been taking Tylenol and ibuprofen. States that she does feel some nausea but no vomiting. She's had a decrease in appetite and states that eating weeks the pain worse. She states that she has had no food in the past 12 hours. She denies any respiratory symptoms. No dysuria, frequency, urgency. No vaginal complaints. She states the pain is a sharp pain. Worse when she moves or lays down. No alleviating factors. Denies . She states her last menstrual. History of this past week but has had irregular periods since her IUD was placed. [facility] Past Medical History Asthma: Yes Diminished Hearing: No Immunizations Current: Yes Thyroid Disease: Yes (hyper ) Tetanus Vaccination: < 5 Years Influenza Vaccination: Yes ?: Unknown : 7 Para: 3 Miscarriage: 1 : 2 Ovarian Cysts: Yes Past Surgical History Surgical History: No Previous Surgery Social History Alcohol Use: Yes (socially) Tobacco Use: Yes Substance Use: No Allergies-Medications (Allergen,Severity, Reaction): Coded Allergies: vitamins (Unverified Allergy, Intermediate, Hives, 05/08/17) amoxicillin (Unverified Allergy, Mild, Hives, 05/08/17) Reported Meds & Prescriptions Reported Meds & Active Scripts Active Vibramycin (Doxycycline Hyclate) 100 Mg Cap 100 Mg PO BID 10 Days Review of Systems Except as stated in HPI: all other systems reviewed are Neg Physical Exam Narrative GENERAL: Well-developed, well-nourished in no acute distress. Nontoxic appearing. HEAD: Normocephalic, atraumatic. EYES: Pupils equal round and reactive. Extraocular motions intact. No scleral icterus. No injection or drainage. ENT: TMs clear without erythema. The external auditory canals clear. Nose: clear . Posterior pharynx is pink and moist. No tonsillar edema or exudate. Uvula midline. Airway patent. NECK: Trachea midline.Supple, nontender, moves head freely. No central bony tenderness or spasm. CARDIOVASCULAR: Regular rate and rhythm without murmurs, gallops, or rubs. RESPIRATORY: Clear to auscultation. Breath sounds equal bilaterally. No wheezes , rales, or rhonchi. GASTROINTESTINAL: Abdomen soft, tenderness in the lower abdomen more so on the right, nondistended. Positive voluntary guarding. No hepato-splenomegaly, or palpable masses. No rebound. EXTREMITIES: No clubbing, cyanosis, or edema. No joint tenderness, effusion, or edema noted. BACK: Nontender without deformity or crepitance. No flank tenderness. Pelvic exam formed with Norma the nurse present. Pelvic: Normal external genitalia. Speculum exam reveals a large amount of yellow brown pus in the vault. Cultures obtained. Positive cervical motion tenderness. No adnexal mass. Positive bilateral neck full tenderness more so on the right than the left. Data Data Last Documented VS Vital Signs Date Time Temp Pulse Resp B/P (MAP) Pulse Ox O2 Delivery O2 Flow Rate FiO2 05/08/17 23:43 98.8 83 16 114/57 (76) 98 Orders Orders Complete Blood Count With Diff (05/08/17 23:42) Basic Metabolic Panel (Bmp) (05/08/17 23:42) C-Reactive Protein (Crp) (05/08/17 23:42) Urinalysis - C+S If Indicated (05/08/17 23:42) Ed Urine Pregnancytest Poc (05/08/17 23:42) Iv Access Insert/Monitor (05/08/17 23:42) Diphenhydramine Inj (Benadryl Inj) (05/08/17 23:45) Metoclopramide Inj (Reglan Inj) (05/08/17 23:45) Urine Culture (05/08/17 23:59) Ct Abd/Pel W Iv Contrast(Rout) (05/09/17 00:47) Ceftriaxone Inj (Rocephin Inj) (05/09/17 01:00) Sodium Chlor 0.9% 1000 Ml Inj (Ns 1000 M (05/09/17 01:00) Iohexol 350 Inj (Omnipaque 350 Inj) (05/09/17 01:12) Wet Prep Profile (05/09/17 02:11) Gc And Chlamydia Pcr (05/09/17 02:11) Labs Laboratory Tests Test 05/08/17 23:59 White Blood Count 17.1 TH/MM3 Red Blood Count 4.24 MIL/MM3 Hemoglobin 12.9 GM/DL Hematocrit 37.9 % Mean Corpuscular Volume 89.5 FL Mean Corpuscular Hemoglobin 30.5 PG Mean Corpuscular Hemoglobin Concent 34.1 % Red Cell Distribution Width 13.4 % Platelet Count 140 TH/MM3 Mean Platelet Volume 9.3 FL Neutrophils (%) (Auto) 86.9 % Lymphocytes (%) (Auto) 5.9 % Monocytes (%) (Auto) 6.9 % Eosinophils (%) (Auto) 0.2 % Basophils (%) (Auto) 0.1 % Neutrophils # (Auto) 14.8 TH/MM3 Lymphocytes # (Auto) 1.0 TH/MM3 Monocytes # (Auto) 1.2 TH/MM3 Eosinophils # (Auto) 0.0 TH/MM3 Basophils # (Auto) 0.0 TH/MM3 CBC Comment DIFF FINAL Differential Comment Urine Color YELLOW Urine Turbidity HAZY Urine pH 6.5 Urine Specific [place] GREATER THAN 1.050 Urine Protein 30 mg/dL Urine Glucose (UA) NEG mg/dL Urine Ketones TRACE mg/dL Urine Occult Blood TRACE Urine Nitrite NEG Urine Bilirubin NEG Urine Urobilinogen LESS THAN 2.0 MG/DL Urine Leukocyte Esterase SMALL Urine RBC 9 /hpf Urine WBC 55 /hpf Urine Squamous Epithelial Cells 1 /hpf Urine Amorphous Sediment RARE Urine Mucus FEW /lpf Microscopic Urinalysis Comment CULTURE INDICATED Blood Urea Nitrogen 13 MG/DL Creatinine 0.84 MG/DL Random Glucose 101 MG/DL Calcium Level 7.8 MG/DL Sodium Level 139 MEQ/L Potassium Level 3.9 MEQ/L Chloride Level 107 MEQ/L Carbon Dioxide Level 25.2 MEQ/L Anion Gap 7 MEQ/L Estimat Glomerular Filtration Rate 83 ML/MIN C-Reactive Protein 10.90 MG/DL [facility] Medical Decision Making Medical Screen Exam Complete: Yes Emergency Medical Condition: Yes Medical Record Reviewed: Yes Interpretation(s) Laboratory Tests Test 05/08/17 23:59 White Blood Count 17.1 TH/MM3 Red Blood Count 4.24 MIL/MM3 Hemoglobin 12.9 GM/DL Hematocrit 37.9 % Mean Corpuscular Volume 89.5 FL Mean Corpuscular Hemoglobin 30.5 PG Mean Corpuscular Hemoglobin Concent 34.1 % Red Cell Distribution Width 13.4 % Platelet Count 140 TH/MM3 Mean Platelet Volume 9.3 FL Neutrophils (%) (Auto) 86.9 % Lymphocytes (%) (Auto) 5.9 % Monocytes (%) (Auto) 6.9 % Eosinophils (%) (Auto) 0.2 % Basophils (%) (Auto) 0.1 % Neutrophils # (Auto) 14.8 TH/MM3 Lymphocytes # (Auto) 1.0 TH/MM3 Monocytes # (Auto) 1.2 TH/MM3 Eosinophils # (Auto) 0.0 TH/MM3 Basophils # (Auto) 0.0 TH/MM3 CBC Comment DIFF FINAL Differential Comment Urine Color YELLOW Urine Turbidity HAZY Urine pH 6.5 Urine Specific [place] GREATER THAN 1.050 Urine Protein 30 mg/dL Urine Glucose (UA) NEG mg/dL Urine Ketones TRACE mg/dL Urine Occult Blood TRACE Urine Nitrite NEG Urine Bilirubin NEG Urine Urobilinogen LESS THAN 2.0 MG/DL Urine Leukocyte Esterase SMALL Urine RBC 9 /hpf Urine WBC 55 /hpf Urine Squamous Epithelial Cells 1 /hpf Urine Amorphous Sediment RARE Urine Mucus FEW /lpf Microscopic Urinalysis Comment CULTURE INDICATED Blood Urea Nitrogen 13 MG/DL Creatinine 0.84 MG/DL Random Glucose 101 MG/DL Calcium Level 7.8 MG/DL Sodium Level 139 MEQ/L Potassium Level 3.9 MEQ/L Chloride Level 107 MEQ/L Carbon Dioxide Level 25.2 MEQ/L Anion Gap 7 MEQ/L Estimat Glomerular Filtration Rate 83 ML/MIN C-Reactive Protein 10.90 MG/DL CT abdomen and pelvis: The appendix is visualized and normal. There is no acute inflammatory process in the abdomen. Differential Diagnosis Differential diagnosis: Acute appendicitis, ovarian cysts, ovarian torsion, PID , tubo-ovarian abscess, gastroenteritis, UTI, pyelonephritis Narrative Course IV access is obtained. Routine laboratory tests sent including CBC, chemistry, CRP, UA and ECG. We will obtain patient's records from her recent evaluation at [facility]. Patient's given Rocephin 1 g IV. Patient's given Zithromax 1 g by mouth. This is PID Diagnosis Primary Impression: PID (acute pelvic inflammatory disease) Patient Instructions: General Instructions Additional Instructions: Rest. Increase fluids. Doxycycline until complete. Tylenol and ibuprofen in the next 2-3 days for recheck. Return to the ER for any problems. Follow-up with your delivery assistant Med/Other Pt SpecificInfo: Prescription(s) given Scripts Doxycycline Hyclate (Vibramycin) 100 Mg Cap 100 MG PO BID for Infection for 10 Days, CAP 0 Refills Prov: Sincere Velazquez MD 05/09/17 Disposition: 01 DISCHARGE HOME Condition: Stable Micah Us May 08, 2017 23:53
[2017-05-09 00:19] LABS: AUTOMATED NEUTROPHIL # 14.8 TH/MM3 (1.8-7.7); BASOPHIL % 0.1 % (0.0-2.0); EOSINOPHIL % 0.2 % (0.0-4.0); HEMATOCRIT 37.9 % (35.0-46.0); HEMO FLAGS DIFF FINAL; LYMPH % 5.9 % (9.0-44.0); MEAN CELL VOLUME 89.5 FL (80.0-100.0); MEAN CORPUSCULAR HEMOGLOBIN 30.5 PG (27.0-34.0); MEAN CORPUSCULAR HGB CONC 34.1 % (32.0-36.0); MONO % 6.9 % (0.0-8.0); NEUT % 86.9 % (16.0-70.0); PLATELET COUNT 140 TH/MM3 (150-450); RED BLOOD COUNT 4.24 MIL/MM3 (4.00-5.30); RED CELL DISTRIBUTION WIDTH 13.4 % (11.6-17.2); WHITE BLOOD COUNT 17.1 TH/MM3 (4.0-11.0)
[2017-05-09 00:32] LABS: BLOOD, URINE TRACE (NEG); COMMENT (UR) CULTURE INDICATED; CULTURE IF INDICATED CULTURE INDICATED; GLUCOSE,URINE NEG (NEG); KETONE, URINE TRACE mg/dL (NEG); MUCUS URINE FEW /lpf (OCC); NITRITE,URINE NEG (NEG); PH, URINE 6.5 (5.0-8.5); SQUAMOUS EPITHELIAL CELL URINE 1 /hpf (0-5); URINE COLOR YELLOW (YELLW/STRAW)
[2017-05-09 00:41] LABS: BICARBONATE 25.2 MEQ/L (21.0-32.0); POTASSIUM 3.9 MEQ/L (3.5-5.1)
[2017-05-09] MEDS ORDERED: SODIUM CHLOR 0.9% 1000 ML INJ 1,000 ML IV ONE (01:00)
[2017-05-09] MEDS ORDERED: cefTRIAXone INJ 1,000 MG in SODIUM CHLORIDE 0.9% INJ 100 ML IV ONE (01:00)
[2017-05-09] MEDS ORDERED: IOHEXOL 350 MG/ML 10 ML VIAL (for RAD DIAG) IVCONTRAST ONE (01:12)
--- NOTE | 2017-05-09 01:35 | RADRPT ---
EXAM DATE/TIME: 05/09/2017 01:08 [place] COMPARISON: No previous studies available for comparison. INDICATIONS : Right lower quadrant pain. IV CONTRAST: 95 cc Omnipaque 350 (iohexol) IV ORAL CONTRAST: No oral contrast ingested. RADIATION DOSE: 9.02 CTDIvol (mGy) MEDICAL HISTORY : Hyperparathyroidism. Ovarian cysts. SURGICAL HISTORY : None. ENCOUNTER: Initial ACUITY: 3 days PAIN SCALE: 7/10 LOCATION: Right lower quadrant TECHNIQUE: Volumetric scanning of the abdomen and pelvis was performed. Using automated exposure control and ad justment of the mA and/or kV according to patient size, radiation dose was kept as low as reasonably achievable to obtain optimal diagnostic quality images. DICOM format image data is available electro nically for review and comparison. FINDINGS: LOWER LUNGS: The visualized lower lungs are clear. LIVER: 19.3 cm craniocaudal. Homogeneous density without lesion. There is no dilation of the biliary tree. No calcified gallstones. SPLEEN: 6.0 x 12.5 x 14.2 cm. PANCREAS: Within normal limits. KIDNEYS: 13 mm cyst right upper pole. ADRENAL GLANDS: Within normal limits. VASCULAR: There is no aortic aneurysm. BOWEL/MESENTERY: The stomach, small bowel, and colon demonstrate no acute abnormality. There is no free intraperitone al air or fluid. Appendix is within normal limits. ABDOMINAL WALL: Within normal limits. RETROPERITONEUM: There is no lymphadenopathy. BLADDER: No wall thickening or mass. REPRODUCTIVE: Prominent vasculature seen along the uterine sidewalls. No well-defined/measurable adnexal mass. No f ree fluid in the pelvic cul-de-sac. An IUD is present. INGUINAL: There is no lymphadenopathy or hernia. MUSCULOSKELETAL: No acute bony abnormality demonstrated. CONCLUSION: 1. No obstruction, inflammatory changes or other acute abnormality demonstrated. 2. Mild, nonspecific hepatosplenomegaly. 3. Small cyst of the right kidney. Jeremias Galaviz MD on May 09, 2017 at 1:29 Board Certified Radiologist. This report was verified electronically.
[2017-05-09] MEDS ORDERED: VIBR100C PO (02:36)
[2017-05-09] MEDS ORDERED: AZITHROMYCIN PWD FOR SUSP 1 GM PACKET PO ONE (02:45)
[2017-05-09 04:31] LABS: CHLAMYDIA PCR NOT DETECTED (NOT DETECT); NEISSERIA PCR DETECTED (NOT DETECT)
[2017-05-27] MEDS ORDERED: CEFT250I IM (12:07)
[2017-05-27] MEDS ORDERED: DOXY100C PO ×2 (12:08→12:09)
== END 2017-05-09 04:01 | disposition home or self-care (01) ==
LOC: NEPD 23:40
DX: N73.9 Female pelvic inflammatory disease, unspecified (principal); R11.0 Nausea; E05.90 Thyrotoxicosis, unspecified without thyrotoxic crisis or storm; J45.909 Unspecified asthma, uncomplicated; Z88.0 Allergy status to penicillin; Z72.0 Tobacco use
CPT/HCPCS: 74177; 80048; 81001; 84703; 85025; 86140; 87086; 87210; 87491; 87591; 96365; 96375; 99285; J0696; J1200; J2765; J7030; Q9967